=== PATIENT | male | born 1985 | race Caucasian/White ===

== ENCOUNTER 2023-01-27 18:07 | Emergency (ER) | payer OTHER ==
[~2023-01-27] VITALS: Ht 167.6 cm; Wt 106.1 kg
[2023-01-27 18:12] VITALS: BP 146/91; PULSE 57; RESP 16; TEMP 97.7; O2SAT 96
--- NOTE | 2023-01-27 18:22 | NUR ---
37 YO M SENT FROM URGENT CARE FOR HIGH [id number]. PT WENT TO GET SEEN FOR DIZZINESS, LIGHTHEADED, SWEATS, CHILLS, URINARY FREQUENCY X TODAY AFTER EATING. PT DENIES N,V,D,C, FEVER, NIXON, SOB, CP. PT STATES HE RAN OUT OF HIS DM MEDICATION. NAD NOTED, SKIN DRY/INTACT, A/OX4, SAFETY MAINTAINED. DR ABBOTT AT BEDSIDE. HX: DM
[2023-01-27] MEDS ORDERED: NACL 0.9% 2,000 ML IV ONE (18:25)
[2023-01-27 19:00] LABS: BASOPHILS # (AUTO) 0.1 K/uL (0.00-0.22); EOSINOPHILS % (AUTO) 0.4 % (0.0-4.0); HEMATOCRIT 49.2 % (36-52); HEMOGLOBIN 16.9 g/dL (12.0-18.0); LYMPHOCYTES % (AUTO) 45.5 % (20.5-51.1); MEAN CORPUSCULAR HEMOGLOBIN 31 pg (27-31); MEAN CORPUSCULAR HGB CONC 34 g/dL (33-37); MEAN CORPUSCULAR VOLUME 89.9 fL (80-94); MONOCYTES # (AUTO) 0.6 K/uL (0.8-1.0); NEUTROPHILS # (AUTO) 4.1 K/uL (1.8-7.7); NEUTROPHILS % (AUTO) 46.1 % (42.2-75.2); PLATELET COUNT (AUTO) 307 K/uL (140-450); RED BLOOD CELL COUNT(AUTO) 5.47 MIL/uL (4.20-6.10); RED CELL DISTRIBUTION WIDTH 12.4 % (11.6-13.7); WHITE BLOOD COUNT (AUTO) 8.8 K/uL (4.8-10.8)
[2023-01-27 19:04] LABS: APPEARANCE,URINE CLEAR (CLEAR); BILIRUBIN,URINE NEGATIVE (NEGATIVE); BLOOD, URINE NEGATIVE (NEGATIVE); COLOR,URINE YELLOW (YELLOW); LEUKOCYTE ESTERASE ,URINE NEGATIVE (NEGATIVE); NITRITE, URINE NEGATIVE (NEGATIVE); UGLUCOSE 3+ (NEGATIVE)
[2023-01-27] MEDS ORDERED: ACETAMINOPHEN EXTRA STRENGTH 500 MG TAB PO ONE (19:05)
[2023-01-27 19:09] LABS: ACETONE, SERUM NEGATIVE (NEGATIVE)
[2023-01-27 19:19] LABS: ANION GAP 12.2 (8-16); ASPARTATE AMINOTRANSFERASE 25 U/L (15-37); CARBON DIOXIDE 30.1 mmol/L (21-32); CHLORIDE 96 mmol/L (98-107); CREATININE 1.2 mg/dL (0.6-1.3); GFR ARICAN-AMERICAN 87 mL/min (>90); GLUCOSE 339 mg/dL (74-106); POTASSIUM 4.3 mmol/L (3.5-5.1); SODIUM SERUM 134 mmol/L (136-145); TOTAL BILIRUBIN 0.4 mg/dL (0.0-1.0); UREA NITROGEN, BLOOD 19 mg/dL (7-18)
--- NOTE | 2023-01-27 19:21 | NUR ---
Pt report given to ANTOLIN BOWEN, ALL QUESTIONS ANSWERED. Transfer of care at this time.
--- NOTE | 2023-01-27 20:00 | NUR ---
AT THE BEDSIDE
[2023-01-27] MEDS ORDERED: METF-346 PO (20:06)
[2023-01-27 20:39] VITALS: BP 115/73; PULSE 59; RESP 18; TEMP 98.4; O2SAT 97
--- NOTE | 2023-01-27 21:27 | NUR ---
sugar [id number]
--- NOTE | 2023-01-27 21:59 | NUR ---
Patient discharged with v/s stable. Written and verbal after care instructions given and explained. Patient alert, oriented and verbalized understanding of instructions. Ambulatory with steady gait. All questions addressed prior to discharge. ID band removed. Patient advised to follow up with PMD. Rx of METFORMIN given. Patient educated on indication of medication including possible reaction and side effects. Opportunity to ask questions provided and answered.
== END 2023-01-27 20:39 | disposition home or self-care (01) ==
LOC: MED 18:07
DX: E11.65 Type 2 diabetes mellitus with hyperglycemia (principal); Z79.4 Long term (current) use of insulin; Z79.899 Other long term (current) drug therapy
CPT/HCPCS: 36415; 80053; 81003; 82009; 85025; 96360; 96361; 99283